=== PATIENT | female | born 1950 | race Hispanic/Latino ===

== ENCOUNTER → 2018-08-08 | Outpatient (CLI) | payer OTHER ==
[~2018-08-08] MED LIST: LIDOCAINE 2%-EPI 1:200,000 20 ML VIAL IJ ONE; LIDOCAINE HCL 1% 20 ML VIAL ONE; SODIUM BICARB 50MEQ 50ML VIAL ONE
--- NOTE | 2018-08-08 11:30 | NUR ---
U/S GD LT BREAST VACUUM ASSISTED BX PROCEDURE PERFORMED BY DR Steven HERRERA. PUNCTURE SITE LT BREAST AT 11 O'CLOCK AND PATIENT TOLERATED PROCEDURE WELL. SPECIMEN X 7 COLLECTED AND SENT TO LAB. TISSUE MARKER DEPLOYED TO BX SITE. END OF PROCEDURE AT 1100. BIOPSY NEEDLE REMOVED AND DRESSING APPLIED. NO BLEEDING NOTED. DISCHARGE INSTRUCTIONS GIVEN TO PATIENT AND VERBALIZED UNDERSTANDING. DISCHARGED VIA AMBULATION AT 1130. AAO X3 WITH NO C/O PAIN.
== END | disposition home or self-care (01) ==
LOC: RAH 08:45
PROVIDERS: ATTEND Family Medicine
DX: D49.3 Neoplasm of unspecified behavior of breast (principal); R92.0 Mammographic microcalcification found on diagnostic imaging of breast
CPT/HCPCS: 19083; 88305; A4215 ×2; A4649 ×3; J3490 ×2; 76942

== ENCOUNTER → 2022-09-07 | Outpatient (CLI) | payer OTHER | END | disposition home or self-care (01) | LOC: RAH 08:58 | PROVIDERS: ATTEND Family Medicine | DX: K76.0 Fatty (change of) liver, not elsewhere classified (principal); K80.20 Calculus of gallbladder without cholecystitis without obstruction; R10.31 Right lower quadrant pain; D25.9 Leiomyoma of uterus, unspecified | CPT/HCPCS: 76700; 76856 ==

== ENCOUNTER → 2023-03-29 | Outpatient (CLI) | payer OTHER | END | disposition home or self-care (01) | LOC: LAB 08:04 | PROVIDERS: ATTEND Internal Medicine Cardiovascular Disease | DX: I73.9 Peripheral vascular disease, unspecified (principal); R07.89 Other chest pain; M79.10 Myalgia, unspecified site; R06.00 Dyspnea, unspecified; Z79.899 Other long term (current) drug therapy | CPT/HCPCS: 82306 ==

== ENCOUNTER → 2023-06-22 | Outpatient (CLI) | payer OTHER | END | disposition home or self-care (01) | LOC: OIH 14:08 | PROVIDERS: ATTEND Internal Medicine Cardiovascular Disease | DX: Z13.6 Encounter for screening for cardiovascular disorders (principal) | CPT/HCPCS: 75571 ==

== ENCOUNTER → 2023-08-17 | Outpatient (CLI) | payer OTHER | END | disposition home or self-care (01) | LOC: RESP 12:34 | PROVIDERS: ATTEND Internal Medicine Cardiovascular Disease | DX: R06.02 Shortness of breath (principal) | CPT/HCPCS: 94060; 94727; 94729 ==